=== PATIENT | male | born 1945 | race Caucasian/White ===

== ENCOUNTER 2018-03-19 15:28 | Emergency (ER) | payer MEDICARE, OTHER ==
[~2018-03-19] VITALS: Ht 177.8 cm; Wt 74.8 kg
[2018-03-19 16:16] LABS: BASO # 0.1 x10^3/uL (0.0-0.2); BASO % 1 % (0-3); EOS % 0 % (0-3); HEMATOCRIT 40.1 % (39.0-53.0); HEMOGLOBIN 13.5 g/dL (13.0-17.5); LYMPH # 1.1 x10^3/uL (1.0-4.8); LYMPH % 8 % (24-48); MEAN CORPUSCULAR HEMOGLOBIN 30 pg (25-35); MEAN CORPUSCULAR HGB CONC 34 g/dL (31-37); MEAN CORPUSCULAR VOLUME 88 fL (79-100); MONO # 1.5 x10^3/uL (0.0-1.1); MONO % 11 % (0-9); NEUT # 11.4 x10^3uL (1.8-7.7); NEUT % 81 % (31-73); PLATELET COUNT 198 x10^3/uL (140-400); RED BLOOD COUNT 4.57 x10^6/uL (4.30-5.70); RED CELL DISTRIBUTION WIDTH 14.7 % (11.5-14.5); WHITE BLOOD COUNT 14.1 x10^3/uL (4.0-11.0)
[2018-03-19] MEDS ORDERED: IV NORMAL SALINE 1000ML BAG 1,000 ML IV SCH (16:19)
[2018-03-19 16:26] LABS: PROTHROMBIN TIME PATIENT 13.7 SEC (11.7-14.0)
[2018-03-19] MEDS ORDERED: IV NORMAL SALINE 500ML BAG 500 ML IV PRN (16:30)
[2018-03-19] MEDS ORDERED: VANCOMYCIN PER PHARMACY MC PRN (16:30)
--- NOTE | 2018-03-19 16:39 | PHYS DOC ---
Past Medical History Past Medical History: No Pertinent History Past Surgical History: Other Additional Past Surgical Histo: CATARACT SX Alcohol Use: None Drug Use: None Adult General Chief Complaint Chief Complaint: PENIS PROBLEM HPI HPI Patient is a 72 year old male with unknown medical history who presents today with hematuria. Patient is a poor historian. He states his had blood from his penis for 2 weeks. He is in the ED with brother who states patient has poor memory. Patient denies any fever nausea vomiting. Review of Systems Review of Systems Constitutional: Denies fever or chills [] Eyes: Denies change in visual acuity, redness, or eye pain [] HENT: Denies nasal congestion or sore throat [] Respiratory: Denies cough or shortness of breath [] Cardiovascular: No additional information not addressed in HPI [] GI: Denies abdominal pain, nausea, vomiting, bloody stools or diarrhea [] Male : Reports hematuria. : Denies dysuria or hematuria [] Musculoskeletal: Denies back pain or joint pain [] Integument: Denies rash or skin lesions [] Neurologic: Denies headache, focal weakness or sensory changes [] All other systems were reviewed and found to be within normal limits, except as documented in this note. Current Medications Current Medications Current Medications Medications (Trade) Dose Ordered Sig/Bernadette Start Time Stop Time Status Last Admin Dose Admin Piperacillin Sod/ Tazobactam Sod 4.5 gm/Sodium Chloride 100 ml @ 200 mls/hr 1X ONCE 03/19/18 17:00 03/19/18 17:29 DC 03/19/18 16:31 200 MLS/HR Sodium Chloride 500 ml @ 1,000 mls/hr PRN Q30MIN PRN 03/19/18 16:30 Vancomycin HCl (Vanco Per Pharmacy) 1 each PRN DAILY PRN 03/19/18 16:30 UNV Vancomycin HCl 1.75 gm/Sodium Chloride 500 ml @ 250 mls/hr 1X ONCE 03/19/18 17:00 03/19/18 18:59 Allergies Allergies Allergies Coded Allergies Type Severity Reaction Last Updated Verified No Known Drug Allergies 03/19/18 No Physical Exam Physical Exam Constitutional: Well developed, well nourished, no acute distress, non-toxic appearance. [] HENT: Normocephalic, atraumatic, bilateral external ears normal, oropharynx moist, no oral exudates, nose normal. [] Eyes: PERRLA, EOMI, conjunctiva normal, no discharge. [] Neck: Normal range of motion, no tenderness, supple, no stridor. [] Cardiovascular:Heart rate regular rhythm, no murmur [] Lungs & Thorax: Bilateral breath sounds clear to auscultation [] Abdomen: Bowel sounds normal, soft, no tenderness, no masses, no pulsatile masses. [] Penis shaft proximal end has a plastic ring constricting the penis. There gangrene to the penis shaft with moderate erythema and blood around the penile head. Skin: Warm, dry, no erythema, no rash. [] Back: No tenderness, no CVA tenderness. [] Extremities: No tenderness, no cyanosis, no clubbing, ROM intact, no edema. [] Neurologic: Alert and oriented X 3, normal motor function, normal sensory function, no focal deficits noted. [] Psychologic: Affect normal, judgement normal, mood normal. [] Current Patient Data Vital Signs Vital Signs Date Time Temp Pulse Resp B/P (MAP) Pulse Ox O2 Delivery O2 Flow Rate FiO2 03/19/18 17:55 106 27 136/71 (92) 95 Room Air 03/19/18 16:01 98.8 98.8 Lab Values Laboratory Tests Test 03/19/18 16:00 White Blood Count 14.1 x10^3/uL (4.0-11.0) H Red Blood Count 4.57 x10^6/uL (4.30-5.70) Hemoglobin 13.5 g/dL (13.0-17.5) Hematocrit 40.1 % (39.0-53.0) Mean Corpuscular Volume 88 fL (79-100) Mean Corpuscular Hemoglobin 30 pg (25-35) Mean Corpuscular Hemoglobin Concent 34 g/dL (31-37) Red Cell Distribution Width 14.7 % (11.5-14.5) H Platelet Count 198 x10^3/uL (140-400) Neutrophils (%) (Auto) 81 % (31-73) H Lymphocytes (%) (Auto) 8 % (24-48) L Monocytes (%) (Auto) 11 % (0-9) H Eosinophils (%) (Auto) 0 % (0-3) Basophils (%) (Auto) 1 % (0-3) Neutrophils # (Auto) 11.4 x10^3uL (1.8-7.7) H Lymphocytes # (Auto) 1.1 x10^3/uL (1.0-4.8) Monocytes # (Auto) 1.5 x10^3/uL (0.0-1.1) H Eosinophils # (Auto) 0.0 x10^3/uL (0.0-0.7) Basophils # (Auto) 0.1 x10^3/uL (0.0-0.2) Prothrombin Time 13.7 SEC (11.7-14.0) Prothrombin Time INR 1.1 (0.8-1.1) PTT 29 SEC (24-38) Sodium Level 136 mmol/L (136-145) Potassium Level 4.2 mmol/L (3.5-5.1) Chloride Level 101 mmol/L (98-107) Carbon Dioxide Level 29 mmol/L (21-32) Anion Gap 6 (6-14) Blood Urea Nitrogen 25 mg/dL (8-26) Creatinine 1.2 mg/dL (0.7-1.3) Estimated GFR (Cockcroft-Gault) 59.2 Glucose Level 155 mg/dL (70-99) H Lactic Acid Level 1.4 mmol/L (0.4-2.0) Calcium Level 9.9 mg/dL (8.5-10.1) Procalcitonin 0.45 ng/mL (0.00-0.10) H Ethyl Alcohol Level < 10 mg/dL (0-10) Laboratory Tests 03/19/18 16:00 Laboratory Tests 03/19/18 16:00 EKG EKG [] Radiology/Procedures Radiology/Procedures [] Course & Med Decision Making Course & Med Decision Making Pertinent Labs and Imaging studies reviewed. (See chart for details) This is a 72-year-old male patient presenting to the ED today with penile problem. Patient appears to have a plastic ring constricting the penile of the proximal end. There is gangrene mid penile shaft with erythema and moderate swelling. Blood noted from the penile. Consulted with Dr. Mobley urologist who will come and see patient Sepsis work up initiated. 16:45 Dr. Reynoso in the Ed seeing patient Dr. Reynoso arranging for transfer to [facility]. Dr. Hal accepting patient at . Will be transferred by EMS emergently. Dragon Disclaimer Dragon Disclaimer This electronic medical record was generated, in whole or in part, using a voice recognition dictation system. Departure Departure Impression: Primary Impression: Cellulitis and necrosis of penis Additional Impression: Hematuria Disposition: 05 TRANSFER OTHER Condition: STABLE Referrals: NO PCP (PCP) Problem Qualifiers Additional Impression: Hematuria Hematuria type: unspecified type Qualified Codes: R31.9 - Hematuria, unspecified KAILA GARBER [employer] DESIGNER Mar 19, 2018 16:39
[2018-03-19 16:45] LABS: CALCIUM 9.9 mg/dL (8.5-10.1); CREATININE 1.2 mg/dL (0.7-1.3); GFR 59.2; POTASSIUM 4.2 mmol/L (3.5-5.1)
[2018-03-19] MEDS ORDERED: PIPERACILLIN/TAZOBACTAM 4.5 GM in IV NORMAL SALINE 100ML 100 ML IV ONE (17:00)
[2018-03-19] MEDS ORDERED: VANCOMYCIN 1.75 GM in IV NORMAL SALINE 500ML BAG 500 ML IV ONE (17:00)
--- NOTE | 2018-03-19 17:31 | PDOC2 ---
UROLOGY CONSULT Date of Consult Date of Consult DATE: 03/19/18 TIME: 17:12 Reason for Consult Reason for Consult: penile wound Source Source: Caregiver, Patient History of Present Illness Reason for Visit: Patient is a 72 yo male with no known medical conditions, other than early stage dementia, who presents with a foreign body at the shaft of his penis. He states that he developed this device to help him "pee better" and thinks it has been on for about 1 week. His brother and sister went to his home today where they noticed his socks were covered in blood and transferred him to [facility] ED. Overall he feels fine. He does not have any pain or feeling in the shaft of his penis. He states that the last time her urinated was 1 day ago. Describes baseline straining to void and weak stream. Normal erections. No fevers, chills or other complaints. Tachycardic in the ED. WBC 14. Cr 1.2. Current Medications Current Medications Current Medications Piperacillin Sod/ Tazobactam Sod 4.5 gm/Sodium Chloride 100 ml @ 200 mls/hr 1X ONCE IV Last administered on 03/19/18at 16:31; Start 03/19/18 at 17:00; Stop 03/19/18 at 17:29 Piperacillin Sod/ Tazobactam Sod 4.5 gm/Sodium Chloride 100 ml @ 200 mls/hr Q6HRS IV ; Start 03/20/18 at 00:00; Status UNV Sodium Chloride 500 ml @ 1,000 mls/hr PRN Q30MIN PRN IV SEE COMMENTS; Start at 16:30 Sodium Chloride 1,000 ml @ 1,000 mls/hr Q1H IV Last administered on 03/19/18at 16:31; Start 03/19/18 at 16:19; Stop 03/19/18 at 18:29 Vancomycin HCl (Vanco Per Pharmacy) 1 each PRN DAILY PRN MC SEE COMMENTS; Start 03/19/18 at 16:30; Status UNV Vancomycin HCl 1.75 gm/Sodium Chloride 500 ml @ 250 mls/hr 1X ONCE IV ; Start 03/19/18 at 17:00; Stop 03/19/18 at 18:59 Allergies Allergies: Coded Allergies: No Known Drug Allergies (Unverified , 03/19/18) ROS Review Of Systems: Pertinent positives and negatives obtained and included in the HPI. Physical Exam Physical Exam: General: Pleasant, no acute distress, well groomed Eyes: conjunctiva anicteric, eyes full range of motion ENT: moist oral mucosa, normal dentition Neck: Trachea midline, no masses Respiratory: unlabored breathing, not using accessory muscles, no crackles or wheezes Cardiovascular: Tachycardic Abdomen: bladder is palpable Skin: no rashes or skin lesions on visualized skin Psych: normal mood, affect. Alert and oriented x 3. Short term memory is poor. : circ phallus with patent and orthotopic meatus, there is the end of a water bottle compressing the base of his penis with necrotic, foul smelly, black tissue beneath, there is bright red blood at the base, the distal shaft skin is purple/black and edematous, the shaft and glans are cold, do not bleed and have multiple areas of superficial tissue loss, normal scrotum and perineum, testes non-tender to palp. Vitals VITALS Vital Signs Date Time Temp Pulse Resp B/P (MAP) Pulse Ox O2 Delivery O2 Flow Rate FiO2 03/19/18 16:01 98.8 113 20 154/75 (101) 98 Room Air 98.8 Labs Labs Laboratory Tests Test 03/19/18 16:00 White Blood Count 14.1 x10^3/uL (4.0-11.0) Red Blood Count 4.57 x10^6/uL (4.30-5.70) Hemoglobin 13.5 g/dL (13.0-17.5) Hematocrit 40.1 % (39.0-53.0) Mean Corpuscular Volume 88 fL (79-100) Mean Corpuscular Hemoglobin 30 pg (25-35) Mean Corpuscular Hemoglobin Concent 34 g/dL (31-37) Red Cell Distribution Width 14.7 % (11.5-14.5) Platelet Count 198 x10^3/uL (140-400) Neutrophils (%) (Auto) 81 % (31-73) Lymphocytes (%) (Auto) 8 % (24-48) Monocytes (%) (Auto) 11 % (0-9) Eosinophils (%) (Auto) 0 % (0-3) Basophils (%) (Auto) 1 % (0-3) Neutrophils # (Auto) 11.4 x10^3uL (1.8-7.7) Lymphocytes # (Auto) 1.1 x10^3/uL (1.0-4.8) Monocytes # (Auto) 1.5 x10^3/uL (0.0-1.1) Eosinophils # (Auto) 0.0 x10^3/uL (0.0-0.7) Basophils # (Auto) 0.1 x10^3/uL (0.0-0.2) Prothrombin Time 13.7 SEC (11.7-14.0) Prothromb Time International Ratio 1.1 (0.8-1.1) Activated Partial Thromboplast Time 29 SEC (24-38) Sodium Level 136 mmol/L (136-145) Potassium Level 4.2 mmol/L (3.5-5.1) Chloride Level 101 mmol/L (98-107) Carbon Dioxide Level 29 mmol/L (21-32) Anion Gap 6 (6-14) Blood Urea Nitrogen 25 mg/dL (8-26) Creatinine 1.2 mg/dL (0.7-1.3) Estimated GFR (Cockcroft-Gault) 59.2 Glucose Level 155 mg/dL (70-99) Lactic Acid Level 1.4 mmol/L (0.4-2.0) Calcium Level 9.9 mg/dL (8.5-10.1) Ethyl Alcohol Level < 10 mg/dL (0-10) Laboratory Tests Test 03/19/18 16:00 White Blood Count 14.1 x10^3/uL (4.0-11.0) Red Blood Count 4.57 x10^6/uL (4.30-5.70) Hemoglobin 13.5 g/dL (13.0-17.5) Hematocrit 40.1 % (39.0-53.0) Mean Corpuscular Volume 88 fL (79-100) Mean Corpuscular Hemoglobin 30 pg (25-35) Mean Corpuscular Hemoglobin Concent 34 g/dL (31-37) Red Cell Distribution Width 14.7 % (11.5-14.5) Platelet Count 198 x10^3/uL (140-400) Neutrophils (%) (Auto) 81 % (31-73) Lymphocytes (%) (Auto) 8 % (24-48) Monocytes (%) (Auto) 11 % (0-9) Eosinophils (%) (Auto) 0 % (0-3) Basophils (%) (Auto) 1 % (0-3) Neutrophils # (Auto) 11.4 x10^3uL (1.8-7.7) Lymphocytes # (Auto) 1.1 x10^3/uL (1.0-4.8) Monocytes # (Auto) 1.5 x10^3/uL (0.0-1.1) Eosinophils # (Auto) 0.0 x10^3/uL (0.0-0.7) Basophils # (Auto) 0.1 x10^3/uL (0.0-0.2) Prothrombin Time 13.7 SEC (11.7-14.0) Prothromb Time International Ratio 1.1 (0.8-1.1) Activated Partial Thromboplast Time 29 SEC (24-38) Sodium Level 136 mmol/L (136-145) Potassium Level 4.2 mmol/L (3.5-5.1) Chloride Level 101 mmol/L (98-107) Carbon Dioxide Level 29 mmol/L (21-32) Anion Gap 6 (6-14) Blood Urea Nitrogen 25 mg/dL (8-26) Creatinine 1.2 mg/dL (0.7-1.3) Estimated GFR (Cockcroft-Gault) 59.2 Glucose Level 155 mg/dL (70-99) Lactic Acid Level 1.4 mmol/L (0.4-2.0) Calcium Level 9.9 mg/dL (8.5-10.1) Ethyl Alcohol Level < 10 mg/dL (0-10) Assessment/Plan Assessment/Plan 72 yo male with an ischemic penis 2/2 a foreign object wrapped around the base. Will need tissue debridement at the base however, his corporal bodies and glans are likely viable. Will declare itself in the next few days. A 16fr catheter was placed with return of 600 cc of CY urine. Discussed the case with Dr. Hong, a urologist at , who accepted the patient in transfer as they are better equipped to manage his care. Started on Vancomycin per ED. LAUREEN STRE[address] MD Mar 19, 2018 17:31
[2018-03-19 17:59] VITALS: BP 147/66
[2018-03-20] MEDS ORDERED: PIPERACILLIN/TAZOBACTAM 4.5 GM in IV NORMAL SALINE 100ML 100 ML IV SCH ×2
--- NOTE | 2018-03-23 16:09 | PATHOLOGY ---
[facility] Accession Number: [id number] . 01 Material submitted: . PENIS RING-FOREIGN OBJECT . 01 Clinical history: . None provided . 02 Diagnosis: Gross examination diagnosis: - Foreign body, clinically from around penis. (JPM:mart;03/23/2018) QMS/03/23/2018 . 02 Electronically signed: . Corbin Krause MD, Pathologist NPI- [id number] . 01 Gross description: . The specimen is received fresh, labeled "Acosta Leyva," and additionally labeled on the requisition as, "penis ring or foreign object around penis". Received are multiple segments of ribbed translucent curved plastic ranging in size from 2.7 x 2.0 x 0.3 to 9.5 x 2.3 x 0.3 cm in greatest dimensions. A gross photograph is taken. Sections are not submitted. (CAA; 03/21/2018) QAC/QAC . 02 Pathologist provided ICD-10: Z18.89 . 02 CPT . 845728 Performed at: 01 [facility] [address], [place] [id number] MD Arun Encinas MD Phone: [phone] Performed at: 02 [facility] [address] [place], [place] [id number] MD Corbin Krause MD Phone: [phone]
== END 2018-03-19 18:06 | disposition short-term general hospital (02) ==
LOC: ER 15:28
DX: R31.9 Hematuria, unspecified (principal); N48.22 Cellulitis of corpus cavernosum and penis; I96 Gangrene, not elsewhere classified
CPT/HCPCS: 36415; 80048; 83605; 84145; 85025; 85610; 85730; 87040; 96365; 96368; 99285; G0480; J2543; J3370; J7030; J7040